=== PATIENT | female | born 1985 | race Caucasian/White ===

== ENCOUNTER 2016-12-24 04:38 | Emergency (ER) | payer SELFPAY ==
[~2016-12-24] VITALS: Ht 170.2 cm; Wt 68.0 kg
[~2016-12-24 04:38] MED LIST: CEPH500C3 PO; MMW SS; PENI500T PO
[2016-12-24 04:47] VITALS: BP 102/66; PULSE 89; RESP 17; TEMP 97.8; O2SAT 98
[2016-12-24] MEDS ORDERED: SODIUM CHLOR 0.9% 1000 ML INJ 1,000 ML IV ONE (05:21)
[2016-12-24] MEDS ORDERED: KETOROLAC TROMETHAMINE 30 MG/ML (IVP) VIAL IVP ONE (05:30)
[2016-12-24] MEDS ORDERED: ONDANSETRON HCL 4 MG/2 ML VIAL IVP ONE (05:30)
[2016-12-24 05:40] LABS: AUTOMATED NEUTROPHIL # 2.7 TH/MM3 (1.8-7.7); BASOPHIL % 0.7 % (0.0-2.0); EOSINOPHIL # 0.1 TH/MM3 (0-0.4); EOSINOPHIL % 1.4 % (0.0-4.0); HEMATOCRIT 25.4 % (35.0-46.0); LYMPHOCYTE # 1.3 TH/MM3 (1.0-4.8); MEAN CORPUSCULAR HEMOGLOBIN 22.6 PG (27.0-34.0); MEAN CORPUSCULAR HGB CONC 31.8 % (32.0-36.0); MONO % 9.5 % (0.0-8.0); NEUT % 60.4 % (16.0-70.0); PLATELET COUNT 237 TH/MM3 (150-450); RED BLOOD COUNT 3.58 MIL/MM3 (4.00-5.30); RED CELL DISTRIBUTION WIDTH 15.9 % (11.6-17.2); WHITE BLOOD COUNT 4.5 TH/MM3 (4.0-11.0)
--- NOTE | 2016-12-24 05:44 | PD ---
HPI Chief Complaint: Flank/Kidney Pain Time Seen by Provider: 05:21 Travel History International Travel<30 days: No Contact w/Intl Traveler<30days: No Traveled to known affect area: No History of Present Illness HPI 31 y/o female presents with left-sided flank pain that started yesterday. She also had an episode of nonbloody emesis when he got bad. She notes 3 prior kidney stones with her last one a couple years ago when she was . She states she's had to have lithotripsy and stent before. She states her last menstrual cycle was about 3 weeks ago. She denies possibility of . She received morphine 4 mg prior to arrival. She denies any other concurrent complaints. Quality of pain is sharp. Severity is severe per patient. PFSH Past Medical History Diminished Hearing: No Kidney Stones: Yes Immunizations Current: Yes Tetanus Vaccination: Unknown Influenza Vaccination: No ?: Not : 3 Para: 3 Miscarriage: 0 : 0 Tubal Ligation: Yes Past Surgical History Section: Yes (X3) Genitourinary Surgery: Yes (LITHOTRIPSY X 2) Gynecologic Surgery: Yes (x2 c sections) Pacemaker: No Other Surgery: Yes () Social History Alcohol Use: No Tobacco Use: No Substance Use: No Allergies-Medications (Allergen,Severity, Reaction): Coded Allergies: Bee Sting (Verified Allergy, Severe, 12/24/16) sob Contrast Media (Verified Allergy, Severe, Shortness of Breath, 12/24/16) Reported Meds & Prescriptions Reported Meds & Active Scripts Active Zofran Odt (Ondansetron Odt) 4 Mg Tab 4 Mg SL Q6HR PRN Percocet (Oxycodone-Acetaminophen) 5-325 mg Tab 1 Tab PO Q6H PRN Review of Systems Except as stated in HPI: all other systems reviewed are Neg Physical Exam Narrative GENERAL: Well-nourished, well-developed patient. SKIN: Warm and dry. HEAD: Normocephalic and atraumatic. EYES: No injection or drainage. ENT: No nasal drainage noted. NECK: Supple, trachea midline. CARDIOVASCULAR: Regular rate and rhythm RESPIRATORY: No increased effort. No accessory muscle use. GASTROINTESTINAL: Abdomen soft, tender left mid lateral abdomen, nondistended. EXTREMITIES: No edema. NEUROLOGICAL: Awake and alert. Motor and sensory grossly within normal limits. Normal speech. Data Data Last Documented VS Vital Signs Date Time Temp Pulse Resp B/P Pulse Ox O2 Delivery O2 Flow Rate FiO2 12/24/16 07:00 20 12/24/16 04:51 89 12/24/16 04:47 97.8 102/66 98 Orders Complete Blood Count With Diff (12/24/16 04:48) Comprehensive Metabolic Panel (12/24/16 04:48) Urinalysis - C+S If Indicated (12/24/16 04:48) Lipase (12/24/16 04:48) Iv Access Insert/Monitor (12/24/16 04:48) Ed Urine Pregnancytest Poc (12/24/16 04:48) Ct Abd/Pel W/O Iv Contrast (12/24/16 05:21) Ketorolac Inj (Toradol Inj) (12/24/16 05:30) Ondansetron Inj (Zofran Inj) (12/24/16 05:30) Sodium Chlor 0.9% 1000 Ml Inj (Ns 1000 M (12/24/16 05:21) Labs Laboratory Tests Test 12/24/16 04:55 White Blood Count 4.5 TH/MM3 Red Blood Count 3.58 MIL/MM3 Hemoglobin 8.1 GM/DL Hematocrit 25.4 % Mean Corpuscular Volume 71.0 FL Mean Corpuscular Hemoglobin 22.6 PG Mean Corpuscular Hemoglobin 31.8 % Concent Red Cell Distribution Width 15.9 % Platelet Count 237 TH/MM3 Mean Platelet Volume 9.1 FL Neutrophils (%) (Auto) 60.4 % Lymphocytes (%) (Auto) 28.0 % Monocytes (%) (Auto) 9.5 % Eosinophils (%) (Auto) 1.4 % Basophils (%) (Auto) 0.7 % Neutrophils # (Auto) 2.7 TH/MM3 Lymphocytes # (Auto) 1.3 TH/MM3 Monocytes # (Auto) 0.4 TH/MM3 Eosinophils # (Auto) 0.1 TH/MM3 Basophils # (Auto) 0.0 TH/MM3 CBC Comment AUTO DIFF Differential Comment AUTO DIFF CONFIRMED Ovalocytes 1+ Sodium Level 142 MEQ/L Potassium Level 3.6 MEQ/L Chloride Level 110 MEQ/L Carbon Dioxide Level 24.8 MEQ/L Anion Gap 7 MEQ/L Blood Urea Nitrogen 14 MG/DL Creatinine 0.56 MG/DL Estimat Glomerular Filtration 127 ML/MIN Rate Random Glucose 89 MG/DL Calcium Level 7.5 MG/DL Total Bilirubin 0.2 MG/DL Aspartate Amino Transf 17 U/L (AST/SGOT) Alanine Aminotransferase 16 U/L (ALT/SGPT) Alkaline Phosphatase 48 U/L Total Protein 6.0 GM/DL Albumin 3.3 GM/DL Lipase 79 U/L MDM Medical Decision Making Medical Screen Exam Complete: Yes Emergency Medical Condition: Yes Medical Record Reviewed: Yes (past history confirmed) Interpretation(s) CBC & BMP Diagram 12/24/16 04:55 Last 24 hours Impressions Abdomen/Pelvis CT 12/24/16 0521 Signed Impressions: Service Date/Time: Monday, December 24, 2016 06:35 - CONCLUSION: 1. Mild hydronephrosis and hydroureter on the left, appears to be related to a 3 mm stone of the distal left ureter. 2. Apparent bilateral medullary calcinosis, typically seen in the setting of renal tubular acidosis type I, medullary sponge kidney or hypercalcemic states. 3. Nonspecific enlarged uterus with fluid in the cavity. 4. Small, nonspecific free fluid in the pelvic cul-de-sac. No hemoperitoneum seen. 5. Mild, nonspecific hepatomegaly. Jordan Santiago MD Differential Diagnosis Kidney stone, UTI, musculoskeletal, Narrative Course Will check blood work, urinalysis, CT scan abdominal pelvis and dose with IV fluids, Zofran, Toradol and reevaluate Blood work shows anemia. Patient notes heavy menstrual cycles. She denies any heavy bleeding now. She will follow this closely as an outpatient and understands her level is low and if she does not monitor this she could end up needing a blood transfusion. Patient is feeling better and wanting to go home. Urinalysis pending Physician Communication Physician Communication dr simms to follow ua and add antibiotic if needed Diagnosis Primary Impression: Ureteral calculus, left Additional Impression: Anemia Qualified Code: D64.9 - Anemia, unspecified type Patient Instructions: General Instructions Additional Instructions: return as needed, follow with primary and urologist this week, percocet as needed for pain- don't take while driving Med/Other Pt SpecificInfo: Prescription(s) given Scripts Ondansetron Odt (Zofran Odt)4 Mg Tab4 Mg SL Q6HR PRN (Nausea/Vomiting) #10 TAB Prov:Hird,Sharon May MD 12/24/16 Oxycodone-Acetaminophen (Percocet)5-325 mg Tab1 Tab PO Q6H PRN (PAIN) #15 TAB Prov:Sharon Prince MD 12/24/16 Disposition: 01 DISCHARGE HOME Condition: Stable Sharon Prince MD Dec 24, 2016 05:44
[2016-12-24 05:45] LABS: HEMO FLAGS AUTO DIFF
[2016-12-24 06:15] LABS: ANION GAP 7 MEQ/L (5-15); AST (GOT) 17 U/L (15-37); BICARBONATE 24.8 MEQ/L (21.0-32.0); BLOOD UREA NITROGEN 14 MG/DL (7-18); CHLORIDE 110 MEQ/L (98-107); GLOMERULAR FILTRATION RATE 127 ML/MIN (>89); POTASSIUM 3.6 MEQ/L (3.5-5.1); SODIUM (NA) 142 MEQ/L (136-145)
[2016-12-24 06:19] LABS: ALKALINE PHOSPHATASE 48 U/L (45-117); ALT (GPT) 16 U/L (10-53); TOTAL BILIRUBIN ADULT 0.2 MG/DL (0.2-1.0)
[2016-12-24 06:30] LABS: OVALOCYTES 1+ (NORMAL); SCAN/DIFF AUTO DIFF CONFIRMED
--- NOTE | 2016-12-24 06:53 | RADRPT ---
EXAM DATE/TIME: 12/24/2016 06:35 [facility] COMPARISON: CT ABDOMEN & PELVIS W/O CONTRAST, November 18, 2013, 9:48. INDICATIONS : Left flank pain. ORAL CONTRAST: No oral contrast ingested. RADIATION DOSE: 14.28 CTDIvol (mGy) MEDICAL HISTORY : None SURGICAL HISTORY : Tubal ligation. ENCOUNTER: Initial ACUITY: 1 day PAIN SCALE: 8/10 LOCATION: Left flank TECHNIQUE: Volumetric scanning of the abdomen and pelvis was performed. Using automated exposure control and ad justment of the mA and/or kV according to patient size, radiation dose was kept as low as reasonably achievable to obtain optimal diagnostic quality images. FINDINGS: Mildly increased density in the medullary pyramid region of both kidneys noted, probably medullary ca lcinosis. No large stones are demonstrated. There is mild hydronephrosis and hydroureter on the left and I believe there is a 3 mm stone in the distal left ureter, series 2 image 170. No hydronephrosis on the right. Enlarged uterus with considerable fluid in the cavity noted. There small free fluid in the pelvic cul -de-sac. Liver measures 22 cm craniocaudal. No focal hepatic lesion. CT appearance of the gallbladder within n ormal limits. Noncontrast appearance of the spleen the pancreas and adrenal glands within normal limits. No obstruction or inflammatory changes seen of the gastrointestinal tract. CONCLUSION: 1. Mild hydronephrosis and hydroureter on the left, appears to be related to a 3 mm stone of the dist al left ureter. 2. Apparent bilateral medullary calcinosis, typically seen in the setting of renal tubular acidosis t ype I, medullary sponge kidney or hypercalcemic states. 3. Nonspecific enlarged uterus with fluid in the cavity. 4. Small, nonspecific free fluid in the pelvic cul-de-sac. No hemoperitoneum seen. 5. Mild, nonspecific hepatomegaly. Jordan Santiago MD on December 24, 2016 at 6:46 Board Certified Radiologist. This report was verified electronically.
[2016-12-24 07:00] VITALS: RESP 20
[2016-12-24] MEDS ORDERED: PERC5TAB12 PO (07:10)
[2016-12-24] MEDS ORDERED: ZOFR4TAB3 SL (07:10)
[2016-12-24 07:36] LABS: BACTERIA, URINE MANY /hpf; BLOOD, URINE MOD (NEG); CALCIUM OXALATE CRYSTALS,URINE RARE /hpf; COMMENT (UR) CULTURE INDICATED; CULTURE IF INDICATED CULTURE INDICATED; GLUCOSE,URINE NEG (NEG); KETONE, URINE NEG (NEG); MUCUS URINE MANY /lpf (OCC); NITRITE,URINE POS (NEG); SQUAMOUS EPITHELIAL CELL URINE 1 /hpf (0-5); URINE COLOR YELLOW (YELLW/STRAW)
--- NOTE | 2016-12-24 07:38 | PD ---
Data Data Last Documented VS Vital Signs Date Time Temp Pulse Resp B/P Pulse Ox O2 Delivery O2 Flow Rate FiO2 12/24/16 07:00 20 12/24/16 04:51 89 12/24/16 04:47 97.8 102/66 98 Orders Complete Blood Count With Diff (12/24/16 04:48) Comprehensive Metabolic Panel (12/24/16 04:48) Urinalysis - C+S If Indicated (12/24/16 04:48) Lipase (12/24/16 04:48) Iv Access Insert/Monitor (12/24/16 04:48) Ed Urine Pregnancytest Poc (12/24/16 04:48) Ct Abd/Pel W/O Iv Contrast (12/24/16 05:21) Ketorolac Inj (Toradol Inj) (12/24/16 05:30) Ondansetron Inj (Zofran Inj) (12/24/16 05:30) Sodium Chlor 0.9% 1000 Ml Inj (Ns 1000 M (12/24/16 05:21) Urine Culture (12/24/16 07:13) Labs Laboratory Tests Test 12/24/16 12/24/16 04:55 07:13 White Blood Count 4.5 TH/MM3 Red Blood Count 3.58 MIL/MM3 Hemoglobin 8.1 GM/DL Hematocrit 25.4 % Mean Corpuscular Volume 71.0 FL Mean Corpuscular Hemoglobin 22.6 PG Mean Corpuscular Hemoglobin 31.8 % Concent Red Cell Distribution Width 15.9 % Platelet Count 237 TH/MM3 Mean Platelet Volume 9.1 FL Neutrophils (%) (Auto) 60.4 % Lymphocytes (%) (Auto) 28.0 % Monocytes (%) (Auto) 9.5 % Eosinophils (%) (Auto) 1.4 % Basophils (%) (Auto) 0.7 % Neutrophils # (Auto) 2.7 TH/MM3 Lymphocytes # (Auto) 1.3 TH/MM3 Monocytes # (Auto) 0.4 TH/MM3 Eosinophils # (Auto) 0.1 TH/MM3 Basophils # (Auto) 0.0 TH/MM3 CBC Comment AUTO DIFF Differential Comment AUTO DIFF CONFIRMED Ovalocytes 1+ Sodium Level 142 MEQ/L Potassium Level 3.6 MEQ/L Chloride Level 110 MEQ/L Carbon Dioxide Level 24.8 MEQ/L Anion Gap 7 MEQ/L Blood Urea Nitrogen 14 MG/DL Creatinine 0.56 MG/DL Estimat Glomerular Filtration 127 ML/MIN Rate Random Glucose 89 MG/DL Calcium Level 7.5 MG/DL Total Bilirubin 0.2 MG/DL Aspartate Amino Transf 17 U/L (AST/SGOT) Alanine Aminotransferase 16 U/L (ALT/SGPT) Alkaline Phosphatase 48 U/L Total Protein 6.0 GM/DL Albumin 3.3 GM/DL Lipase 79 U/L Urine Color YELLOW Urine Turbidity HAZY Urine pH 6.0 Urine Specific [place] 1.024 Urine Protein TRACE mg/dL Urine Glucose (UA) NEG mg/dL Urine Ketones NEG mg/dL Urine Occult Blood MOD Urine Nitrite POS Urine Bilirubin NEG Urine Urobilinogen LESS THAN 2.0 MG/DL Urine Leukocyte Esterase SMALL Urine RBC 38 /hpf Urine WBC 9 /hpf Urine Squamous Epithelial 1 /hpf Cells Urine Calcium Oxalate Crystals RARE /hpf Urine Bacteria MANY /hpf Urine Mucus MANY /lpf Microscopic Urinalysis Comment CULTURE INDICATED MDM Supervised Visit with NEIL: No Narrative Course Patient care assumed from Dr. Wiseman at 0700. This is a 31-year-old female who presented with flank pain. She has a 3 mm minimally obstructing distal kidney stone. Last 24 hours Impressions Abdomen/Pelvis CT 12/24/16 0521 Signed Impressions: Service Date/Time: Saturday, December 24, 2016 06:35 - CONCLUSION: 1. Mild hydronephrosis and hydroureter on the left, appears to be related to a 3 mm stone of the distal left ureter. 2. Apparent bilateral medullary calcinosis, typically seen in the setting of renal tubular acidosis type I, medullary sponge kidney or hypercalcemic states. 3. Nonspecific enlarged uterus with fluid in the cavity. 4. Small, nonspecific free fluid in the pelvic cul-de-sac. No hemoperitoneum seen. 5. Mild, nonspecific hepatomegaly. Jordan Santiago MD On my examination the patient is calm and collected and comfortable. She states she currently has no pain. No nausea. No fever. my instructions were to follow up the urinalysis and disposition the patient properly. Patient does have nitrate positive urine. On my reexamination, she has no CVA tenderness and appears well. I discussed that she does technically have an infected stone and could consider being admitted for urology consult and removal of stone but she could also try outpatient therapy at this time. She would like to try outpatient therapy and follow-up with the urologist. We'll place on ciprofloxacin. Discussed return to ED criteria including fever and inability to tolerate by mouth as well as extreme flank pain. She is grateful like to go home. Diagnosis Primary Impression: Ureteral calculus, left Additional Impressions: Anemia Qualified Code: D64.9 - Anemia, unspecified type Urinary tract infection Patient Instructions: General Instructions Additional Instruction: return as needed, follow with primary and urologist this week, percocet as needed for pain- don't take while driving Scripts Ferrous Sulfate 325 Mg [id number] Mg PO DAILY #30 TAB Ref 0 Prov:Migue Mcdaniels MD 12/24/16 Ciprofloxacin 500 Mg [id number] Mg PO BID 7 Days Ref 0 Prov:Migue Mcdaniels MD 12/24/16 Ondansetron Odt (Zofran Odt)4 Mg Tab4 Mg SL Q6HR PRN (Nausea/Vomiting) #10 TAB Prov:Sharon Prince MD 12/24/16 Oxycodone-Acetaminophen (Percocet)5-325 mg Tab1 Tab PO Q6H PRN (PAIN) #15 TAB Prov:Sharon Prince MD 12/24/16 Disposition: 01 DISCHARGE HOME Condition: Stable Migue Mcdaniels MD Dec 24, 2016 07:37
[2016-12-24] MEDS ORDERED: FERR325T PO (07:56)
[2016-12-24] MEDS ORDERED: CIPR500T2 PO (07:56)
== END 2016-12-24 08:24 | disposition home or self-care (01) ==
LOC: NEPE 04:38
DX: N13.2 Hydronephrosis with renal and ureteral calculous obstruction (principal); D64.9 Anemia, unspecified; N39.0 Urinary tract infection, site not specified; B96.1 Klebsiella pneumoniae [K. pneumoniae] as the cause of diseases classified elsewhere; Z87.442 Personal history of urinary calculi; N85.2 Hypertrophy of uterus; R16.0 Hepatomegaly, not elsewhere classified
CPT/HCPCS: 74176; 80053; 81001; 83690; 84703; 85025; 87077; 87086; 87186; 96361; 96374; 96375; 99284; J1885; J2405; J7030

== ENCOUNTER 2017-04-08 13:59 | Emergency (ER) | payer SELFPAY ==
[~2017-04-08] VITALS: Ht 170.2 cm; Wt 68.0 kg
[~2017-04-08 13:59] MED LIST changes: -CEPH500C3 PO; +CIPR500T2 PO; +FERR325T PO; -MMW SS; -PENI500T PO; +PERC5TAB12 PO; +ZOFR4TAB3 SL
[2017-04-08 14:03] VITALS: BP 125/78; PULSE 78; RESP 20; TEMP 97.8; O2SAT 100
--- NOTE | 2017-04-08 14:35 | PD ---
HPI Chief Complaint: Abdominal Pain Time Seen by Provider: 14:35 Travel History International Travel<30 days: No Contact w/Intl Traveler<30days: No Traveled to known affect area: No History of Present Illness HPI 31-year-old female with PMH of kidney stones presents to the ED for evaluation of 1 week history 3-12/05 dull, left-sided flank pain. She endorses heavy feeling in the lower abdomen. Patient denies fever, chills, nausea, vomiting, dysuria, hematuria, back pain. She endorses history of tubal ligation. LMP "2 weeks ago." He states the pain woke her from sleep overnight which caused her to seek evaluation. PFSH Past Medical History Hx Anticoagulant Therapy: No Anemia: Yes Cardiovascular Problems: No Chemotherapy: No Cerebrovascular Accident: No Diabetes: No Diminished Hearing: No Kidney Stones: Yes Respiratory: No Immunizations Current: Yes ?: Not LMP: tubal ligation : 3 Para: 3 Miscarriage: 0 : 0 Tubal Ligation: Yes Past Surgical History Section: Yes (X3) Genitourinary Surgery: Yes (LITHOTRIPSY X 2) Gynecologic Surgery: Yes (x2 c sections) Pacemaker: No Other Surgery: Yes () Social History Alcohol Use: Yes (occas) Tobacco Use: No Substance Use: No Allergies-Medications (Allergen,Severity, Reaction): Coded Allergies: Bee Sting (Verified Allergy, Severe, 04/08/17) sob Contrast Media (Verified Allergy, Severe, Shortness of Breath, 04/08/17) Reported Meds & Prescriptions Reported Meds & Active Scripts Active No Active Prescriptions or Reported Medications Review of Systems Except as stated in HPI: all other systems reviewed are Neg Physical Exam Narrative GENERAL: Well-nourished, well-developed female in no acute distress. SKIN: Focused skin assessment warm/dry. HEAD: Normocephalic. EYES: No scleral icterus. No injection or drainage. NECK: Supple, trachea midline. No JVD or lymphadenopathy. CARDIOVASCULAR: Regular rate and rhythm without murmurs, gallops, or rubs. RESPIRATORY: Breath sounds clear and equal bilaterally. No accessory muscle use. GASTROINTESTINAL: Abdomen soft, non-tender, nondistended. Very mild suprapubic tenderness. No flank tenderness. Active bowel sounds. MUSCULOSKELETAL: No cyanosis, or edema. BACK: Nontender without obvious deformity. No CVA tenderness. Data Data Last Documented VS Vital Signs Date Time Temp Pulse Resp B/P Pulse Ox O2 Delivery O2 Flow Rate FiO2 04/08/17 16:39 73 15 97/57 99 Room Air 04/08/17 14:03 97.8 Orders Complete Blood Count With Diff (04/08/17 14:40) Basic Metabolic Panel (Bmp) (04/08/17 14:40) Urinalysis - C+S If Indicated (04/08/17 14:40) Ed Urine Pregnancytest Poc (04/08/17 14:40) Ketorolac Inj (Toradol Inj) (04/08/17 14:45) Ct Abd/Pel W/O Iv Contrast (04/08/17 15:35) Labs Laboratory Tests Test 04/08/17 14:40 White Blood Count 5.1 TH/MM3 Red Blood Count 4.55 MIL/MM3 Hemoglobin 10.4 GM/DL Hematocrit 33.5 % Mean Corpuscular Volume 73.6 FL Mean Corpuscular Hemoglobin 22.8 PG Mean Corpuscular Hemoglobin 31.0 % Concent Red Cell Distribution Width 17.1 % Platelet Count 294 TH/MM3 Mean Platelet Volume 8.4 FL Neutrophils (%) (Auto) 61.0 % Lymphocytes (%) (Auto) 29.3 % Monocytes (%) (Auto) 8.3 % Eosinophils (%) (Auto) 0.9 % Basophils (%) (Auto) 0.5 % Neutrophils # (Auto) 3.1 TH/MM3 Lymphocytes # (Auto) 1.5 TH/MM3 Monocytes # (Auto) 0.4 TH/MM3 Eosinophils # (Auto) 0.0 TH/MM3 Basophils # (Auto) 0.0 TH/MM3 CBC Comment DIFF FINAL Differential Comment Urine Color YELLOW Urine Turbidity CLEAR Urine pH 6.0 Urine Specific [place] 1.022 Urine Protein NEG mg/dL Urine Glucose (UA) NEG mg/dL Urine Ketones NEG mg/dL Urine Occult Blood NEG Urine Nitrite NEG Urine Bilirubin NEG Urine Urobilinogen LESS THAN 2.0 MG/DL Urine Leukocyte Esterase NEG Urine RBC LESS THAN 1 /hpf Urine WBC LESS THAN 1 /hpf Urine Squamous Epithelial <1 /hpf Cells Urine Mucus FEW /lpf Microscopic Urinalysis Comment CULT NOT INDICATED Sodium Level 139 MEQ/L Potassium Level 3.8 MEQ/L Chloride Level 105 MEQ/L Carbon Dioxide Level 27.5 MEQ/L Anion Gap 7 MEQ/L Blood Urea Nitrogen 15 MG/DL Creatinine 0.57 MG/DL Estimat Glomerular Filtration 125 ML/MIN Rate Random Glucose 84 MG/DL Calcium Level 8.4 MG/DL MDM Medical Decision Making Medical Screen Exam Complete: Yes Emergency Medical Condition: Yes Differential Diagnosis Cystitis versus pyelonephritis versus nephroureterolithiasis versus versus other Narrative Course 31-year-old female with PMH of kidney stones presents to the ED for evaluation of 1 week history 3-12/05 dull, left-sided flank pain. She endorses heavy feeling in the lower abdomen. Patient denies fever, chills, nausea, vomiting, dysuria, hematuria, back pain. She endorses history of tubal ligation. LMP "2 weeks ago." He states the pain woke her from sleep overnight which caused her to seek evaluation. Vitals reviewed. Physical exam reveals very mild right lower quadrant tenderness to palpation, otherwise unremarkable. ED urine test negative. CBC and CMP without concerning abnormalities. No culture indicated of the UA. I discussed the results of lab she states that she would like to have the CT to rule out nephroureterolithiasis. CT without acute abnormality per radiology read. I discussed the results of the workup with the patient. At this point I'm unsure of the cause of her abdominal pain but admission is inappropriate. She is agreeable to follow up with her primary care. She is stable and discharged home. Diagnosis Primary Impression: Right-sided abdominal pain of unknown cause Referrals: Primary Care Physician Patient Instructions: Abdominal Pain (ED), General Instructions Additional Instructions: Rest, hydrate. Return to normal, gentle activity as tolerated. Follow-up with the primary care provider. Return to the ED for any urgent or emergent medical condition. Scripts No Active Prescriptions or Reported Meds Disposition: 01 DISCHARGE HOME Condition: Stable Bridget Donohue Apr 08, 2017 14:35
[2017-04-08] MEDS ORDERED: KETOROLAC TROMETHAMINE 30 MG/ML (IVP) VIAL IV PUSH ONE (14:45)
[2017-04-08 15:15] LABS: BLOOD, URINE NEG (NEG); COMMENT (UR) CULT NOT INDICATED; CULTURE IF INDICATED CULT NOT INDICATED; GLUCOSE,URINE NEG (NEG); KETONE, URINE NEG (NEG); MUCUS URINE FEW /lpf (OCC); NITRITE,URINE NEG (NEG); SQUAMOUS EPITHELIAL CELL URINE <1 /hpf (0-5); URINE COLOR YELLOW (YELLW/STRAW)
[2017-04-08 15:17] LABS: AUTOMATED NEUTROPHIL # 3.1 TH/MM3 (1.8-7.7); BASOPHIL % 0.5 % (0.0-2.0); EOSINOPHIL % 0.9 % (0.0-4.0); HEMATOCRIT 33.5 % (35.0-46.0); HEMO FLAGS DIFF FINAL; LYMPH % 29.3 % (9.0-44.0); LYMPHOCYTE # 1.5 TH/MM3 (1.0-4.8); MEAN CELL VOLUME 73.6 FL (80.0-100.0); MEAN CORPUSCULAR HEMOGLOBIN 22.8 PG (27.0-34.0); MONO % 8.3 % (0.0-8.0); PLATELET COUNT 294 TH/MM3 (150-450); RED BLOOD COUNT 4.55 MIL/MM3 (4.00-5.30); RED CELL DISTRIBUTION WIDTH 17.1 % (11.6-17.2); WHITE BLOOD COUNT 5.1 TH/MM3 (4.0-11.0)
[2017-04-08 15:30] LABS: BICARBONATE 27.5 MEQ/L (21.0-32.0); POTASSIUM 3.8 MEQ/L (3.5-5.1)
[2017-04-08 16:39] VITALS: BP 97/57; PULSE 73; RESP 15; O2SAT 99
--- NOTE | 2017-04-08 17:41 | RADRPT ---
EXAM DATE/TIME: 04/08/2017 16:46 [facility] COMPARISON: CT ABDOMEN & PELVIS W/O CONTRAST, December 24, 2016, 6:35. INDICATIONS : Right flank pain. ORAL CONTRAST: No oral contrast ingested. RADIATION DOSE: 6.13 CTDIvol (mGy) MEDICAL HISTORY : Renal calculi. SURGICAL HISTORY : Tubal ligation. Lithotripsy x 2 ENCOUNTER: Initial ACUITY: 1 day PAIN SCALE: 2/10 LOCATION: Right flank TECHNIQUE: Volumetric scanning of the abdomen and pelvis was performed. Using automated exposure control and ad justment of the mA and/or kV according to patient size, radiation dose was kept as low as reasonably achievable to obtain optimal diagnostic quality images. DICOM format image data is available electro nically for review and comparison. FINDINGS: LOWER LUNGS: The visualized lower lungs are clear. LIVER: Homogeneous density without lesion. There is no dilation of the biliary tree. No calcified gallston es. SPLEEN: Normal size without lesion. PANCREAS: Within normal limits. KIDNEYS: Normal in size and shape. There is no mass, stone, or hydronephrosis. ADRENAL GLANDS: Within normal limits. VASCULAR: There is no aortic aneurysm. BOWEL/MESENTERY: The stomach, small bowel, and colon demonstrate no acute abnormality. There is no free intraperitone al air or fluid. ABDOMINAL WALL: Within normal limits. RETROPERITONEUM: There is no lymphadenopathy. BLADDER: No wall thickening or mass. REPRODUCTIVE: Within normal limits. INGUINAL: There is no lymphadenopathy or hernia. MUSCULOSKELETAL: Within normal limits for patient age. CONCLUSION: No evidence of nephrolithiasis, hydronephrosis or acute process. Gilbert Snyder MD on April 08, 2017 at 17:36 Board Certified Radiologist. This report was verified electronically.
[2017-04-08 18:34] VITALS: BP 103/73; PULSE 78; RESP 15; O2SAT 100
== END 2017-04-08 18:35 | disposition home or self-care (01) ==
LOC: NEPC 13:59
DX: R10.9 Unspecified abdominal pain (principal); D64.9 Anemia, unspecified
CPT/HCPCS: 74176; 80048; 81001; 84703; 85025; 96374; 99285; J1885